=== PATIENT | male | born 1995 | race Hispanic/Latino ===

== ENCOUNTER 2019-12-15 22:22 | Emergency (ER) | payer OTHER ==
[~2019-12-15] VITALS: Ht 175.3 cm; Wt 89.0 kg
[2019-12-15] MEDS ORDERED: IBUPROFEN 800 MG TAB PO ONE (23:30)
[2019-12-15] MEDS ORDERED: NS 1,000 ML IV ONE (23:30)
[2019-12-15] MEDS ORDERED: ACETAMINOPHEN TAB 650MG DOSE (2X325MG) PO ONE (23:30)
[2019-12-15] MEDS ORDERED: ONDANSETRON 4MG/2ML VIAL IV ONE (23:30)
[2019-12-16 00:31] LABS: BASO % 0.3 % (0.0-1.0); EOS % 0.4 % (0.0-3.0); HEMATOCRIT 45.6 % (42.0-52.0); HEMOGLOBIN 15.5 g/dl (13.5-17.5); LYMPH # 0.9 10^3/uL (1.5-5.0); LYMPH % 13.3 % (24.0-44.0); MEAN CORPUSCULAR HEMOGLOBIN 30.8 pg (27.0-33.0); MEAN CORPUSCULAR VOLUME 90.7 fl (80.0-96.0); MONO # 0.8 10^3/uL (0.0-0.8); MONO % 12.4 % (0.0-5.0); NEUTROPHILS # 4.9 10^3/uL (1.5-8.5); NEUTROPHILS % 72.9 % (36.0-66.0); PLATELET COUNT, AUTOMATED 200 10^3/uL (150-450); RED BLOOD COUNT 5.03 10^6/uL (4.30-6.10); WHITE BLOOD COUNT 6.8 10^3/uL (4.0-10.0)
[2019-12-16 00:42] LABS: ALT/SGPT 37 U/L (12-78); BILIRUBIN,DIRECT 0.2 MG/DL (0.0-0.2); BILIRUBIN,TOTAL 0.8 MG/DL (0.2-1.0); BLOOD UREA NITROGEN 17 MG/DL (7-18); CALCIUM LEVEL 9.4 MG/DL (8.5-10.1); CARBON DIOXIDE LEVEL 26 MEQ/L (21-32); CHLORIDE LEVEL 104 MEQ/L (98-107); CREATININE FOR GFR 1.21 MG/DL (0.70-1.30); GLOMERULAR FILTRATION RATE > 60.0 (>60); GLUCOSE, FASTING 87 MG/DL (70-100); LIPASE 127 U/L (73-393); POTASSIUM SERUM 4.2 MEQ/L (3.5-5.1); SODIUM LEVEL 138 MEQ/L (136-145); TOTAL PROTEIN 7.5 GM/DL (6.4-8.2)
[2019-12-16] MEDS ORDERED: ACETAMINOPHEN TAB 650MG DOSE (2X325MG) PO ONE (01:30)
[2019-12-16] MEDS ORDERED: ONDA4TAB6 PO (01:41)
[2019-12-16 01:51] VITALS: BP 114/48
[2019-12-17] MEDS ORDERED: AUGM875T28 PO (13:30)
== END 2019-12-16 02:10 | disposition home or self-care (01) ==
LOC: M ED 22:22
DX: J06.9 Acute upper respiratory infection, unspecified (principal); B34.9 Viral infection, unspecified; R11.2 Nausea with vomiting, unspecified
CPT/HCPCS: 80048; 80076; 83605; 83690; 85025; 87040; 87486; 87581; 87633; 87798; 93041; 96361; 96374; 99285; J2405

== ENCOUNTER 2019-12-17 12:53 | Emergency (ER) | payer OTHER ==
[~2019-12-17] VITALS: Ht 175.3 cm; Wt 87.6 kg
[~2019-12-17 12:53] MED LIST: ONDA4TAB6 PO
[2019-12-17 12:54] VITALS: BP 149/67
[2019-12-17] MEDS ORDERED: AUGMENTIN 875 MG TAB PO ONE (13:30)
[2019-12-17] MEDS ORDERED: ACETAMINOPHEN 325 MG TAB PO ONE (13:30)
[2019-12-17] MEDS ORDERED: AUGM875T28 PO (13:30)
== END 2019-12-17 13:42 | disposition home or self-care (01) ==
LOC: M ED 12:53
DX: H66.92 Otitis media, unspecified, left ear (principal); K05.00 Acute gingivitis, plaque induced; J02.9 Acute pharyngitis, unspecified

== ENCOUNTER 2020-01-20 10:55 | Emergency (ER) | payer OTHER ==
[~2020-01-20] VITALS: Ht 175.3 cm; Wt 85.0 kg
[~2020-01-20 10:55] MED LIST changes: +AUGM875T28 PO
[2020-01-20 10:56] VITALS: BP 127/67
--- NOTE | 2020-01-20 11:21 | REP ---
INDICATION: dog pulled on arm COMPARISON: None. TECHNIQUE: Internal rotation, external rotation, and Y view. FINDINGS: No acute fracture or dislocation. The acromioclavicular and glenohumeral joints are intact. No periarticular calcifications or degenerative changes are appreciated. Sub acromial space is normal. Surrounding soft tissues are unremarkable. IMPRESSION: Normal right shoulder radiographs. <Electronically signed by Zay Ernst > 01/20/20 [id number]
== END 2020-01-20 12:26 | disposition home or self-care (01) ==
LOC: M ED 10:55
DX: S43.401A Unspecified sprain of right shoulder joint, initial encounter (principal); X50.0XXA Overexertion from strenuous movement or load, initial encounter; Y92.9 Unspecified place or not applicable; Y93.K9 Activity, other involving animal care; Y99.1 Military activity

== ENCOUNTER 2020-03-05 15:05 | Emergency (ER) | payer OTHER ==
[~2020-03-05] VITALS: Ht 175.3 cm; Wt 85.0 kg
[2020-03-05 15:06] VITALS: BP 132/62
[2020-03-05] MEDS ORDERED: AZITHROMYCIN 250MG TABLET PO ONE (15:45)
[2020-03-05 17:18] LABS: CHLAMYDIA DNA AMPLIFICATION NEGATIVE (NEGATIVE); GC DNA AMPLIFICATION NEGATIVE (NEGATIVE)
== END 2020-03-05 16:01 | disposition home or self-care (01) ==
LOC: M ED 15:05
DX: Z20.2 Contact with and (suspected) exposure to infections with a predominantly sexual mode of transmission (principal)